=== PATIENT | male | born 1995 | race Two or more races ===

== ENCOUNTER 2025-08-26 15:48 | Emergency (ER) | payer MEDICAID, OTHER ==
[~2025-08-26] VITALS: Ht 185.4 cm; Wt 71.7 kg
[2025-08-26] MEDS: PROCHLORPERAZINE EDISYLATE 5 MG/ML 2ML VIAL IV ONE (16:15)
--- NOTE | 2025-08-26 16:38 | ED.PDOC ---
GI ASSESSMENT HPI Comments 29y M who presents to the ED for chief complaint of nausea and vomiting. Pt states he has been having nasuea, vomiting, chills, hot and cold sweats since earlier this AM. Pt has also been having diffuse abdominal pain, rating the pain 9/10, with associated exacerbating or relieving factors. Pt states he drinks ETOH and is daily marijuana smoker. Pt otherwise has noted rr 24 with otherwise stable vitals. Pt denies any sick contacts or changes to diet. Pt denies any other symptoms at this time. Chief Complaint: Nausea/Vomiting Time Seen by MD: 16:35 Reviewed Notes: Medications, Allergies Allergies: Coded Allergies: NO KNOWN ALLERGIES (Unverified , 08/26/25) Home Meds Active Scripts Pantoprazole Sodium Sesquihydr (Protonix) 40 Mg Tab, 40 MG PO DAILY, #30 TAB Prov:MARISSA KAUR MD 08/26/25 Ondansetron Odt 4MG Tab (ZOFRAN PO) 4 Mg Tb, 4 MG PO Q8HP PRN for 7 Days, #21 TAB ODT TAB-DISSOLVE IN MOUTH, THEN SWALLOW Prov:MARISSA KAUR MD 08/26/25 Information Source: Patient Mode of Arrival: Ambulatory Brought in by: self Timing: Hours Duration: Since onset Prehospital treatment: None Quality: Aching Vomitus: Food Particles Stool: Normal Severity: Moderate Recent: Other (marijuana) Recent Hx of: None Pain Location: Diffuse Modifying Factors: Nothing Associated sign and symptoms: Nausea, Vomiting, Abdominal Pain Past Medical History PAST MEDICAL HISTORY: Denies Surgical History: Denies all surgeries Family History Family History: Reviewed,noncontributory to illness Social History Smoker: Cigarettes Alcohol: Denies ETOH Use Drugs: Marijuana Constitutional: denies: chills, diaphoresis, fatigue, fever, malaise, sweats, weakness, others EENTM: denies: blurred vision, double vision, ear bleeding, ear discharge, ear drainage, ear pain, ear ringing, eye pain, eye redness, hearing loss, mouth pain, mouth swelling, nasal discharge, nose bleeding, nose congestion, nose pain, photophobia, tearing, throat pain, throat swelling, voice changes, others Respiratory: denies: cough, hemoptysis, orthopnea, SOB at rest, shortness of breath, SOB with excertion, stridor, wheezing, others Cardiovascular: denies: chest pain, dizzy spells, diaphoresis, Dyspnea on exertion, edema, irregular heart beat, left arm pain, lightheadedness, palpitations, PND, syncope, others Gastrointestinal: reports: nausea, vomiting; denies: abdomen distended, abdominal pain, blood streaked bowels, constipated, diarrhea, dysphagia, difficulty swallowing, hematemesis, melena, poor appetite, poor fluid intake, rectal bleeding, rectal pain, others Genitourinary: denies: burning, dysuria, flank pain, frequency, hematuria, incontinence, penile discharge, penile sore, pain, testicle pain, testicle swelling, urgency, others Neurological: denies: dizziness, fainting, headache, left sided numbness, left sided weakness, numbness, paresthesia, pre-existing deficit, right sided numbness, right sided weakness, seizure, speech problems, tingling, tremors, weakness, others Musculoskeletal: denies: back pain, gout, joint pain, joint swelling, muscle pain, muscle stiffness, neck pain, others Integumetry: denies: bruises, change in color, change in hair/nails, dryness, laceration, lesions, lumps, rash, wounds, others Allergic/Immunocompromised: denies: Difficulty Healing, Frequent Infections, Hives, Itching, others Hematologic/Lymphatic: denies: anemia, blood clots, easy bleeding, easy bruising, swollen glands, others Endocrine: denies: excessive hunger, excessive sweating, excessive thirst, excessive urination, flushing, intolerance to cold, intolerance to heat, unexplained weight gain, unexplained weight loss, others Psychiatric: denies: anxiety, bipolar disorder, depression, hopeless, panic disorder, schizophrenia, sleepless, suicidal, others All Other Systems: Reviewed and Negative Physical Exam General Appearance: Mild Distress HEENT: Normal ENT Inspection, Pharynx Normal, TMs Normal Neck: Full Range of Motion, Non-Tender, Normal, Normal Inspection Respiratory: Chest Non-Tender, Lungs Clear, No Accessory Muscle Use, No Respiratory Distress, Normal Breath Sounds Cardiovascular: No Edema, No JVD, No Murmur, No Gallop, Normal Peripheral Pulses, Regular Rate/Rhythm Breast Exam: Deferred Gastrointestinal: No Organomegaly, Non Tender, No Pulsatile Mass, Normal Bowel Sounds, Soft Genitalia: Deferred Pelvic: Deferred Rectal: Deferred Extremities: No calf tenderness, Normal capillary refill, Normal inspection, Normal range of motion, Non-tender, No pedal edema Musculoskeletal : Apperance: Normal Neurologic: Alert, instructor technical training II-XII nml as Tested, No Motor Deficits, Normal Affect, Normal Mood, No Sensory Deficits Cerebellar Function: Normal Reflexes: Normal Skin: Dry, Normal Color, Warm Lymphatic: No Adenopathy Was a procedure done? Was a procedure done?: No GI differential Dx Differential Diagnosis: Gastritis/PUD, Gastroenteritis, Pancreatitis, Dehydration, Electrolyte Imbalance, Food Poisoning, Bacterial, Viral Other Differential Diagnosis hyperemesis cannabinoid syndrome X-Ray, Labs, Meds, VS Vital Signs Date Time Temp Pulse Resp B/P (MAP) Pulse Ox O2 Delivery O2 Flow Rate FiO2 08/26/25 17:18 97.4 64 16 120/87 (98) 100 97.4 08/26/25 15:52 97.8 73 24 126/78 99 97.8 Lab Test 08/26/25 16:24 Range/Units White Blood Count 6.3 4.4-10.8 10^3/uL Red Blood Count 5.59 4.5-5.90 10^6/uL Hemoglobin 16.4 13.5-17.5 g/dL Hematocrit 47.4 41.0-53.0 % Mean Corpuscular Volume 84.8 80.0-100.0 fL Mean Corpuscular Hemoglobin 29.3 28.0-32.0 pg Mean Corpuscular Hemoglobin Concent 34.6 32.0-36.0 g/dL Red Cell Distribution Width 14.2 11.8-14.3 % Platelet Count 169 140-450 10^3/uL Mean Platelet Volume 12.0 H 6.9-10.8 fL Neutrophils (%) (Auto) 89.9 H 37.0-80.0 % Lymphocytes (%) (Auto) 7.8 L 10.0-50.0 % Monocytes (%) (Auto) 1.9 0.0-12.0 % Eosinophils (%) (Auto) 0.1 0.0-7.0 % Basophils (%) (Auto) 0.3 0.0-2.0 % Neutrophils # (Auto) 5.7 1.6-8.6 10 ^3/uL Lymphocytes # (Auto) 0.5 0.4-5.4 10 ^3/uL Monocytes # (Auto) 0.1 0-1.3 10 ^3/uL Eosinophils # (Auto) 0 0-0.8 10 ^3/uL Basophils # (Auto) 0 0-0.2 10 ^3/uL Nucleated Red Blood Cells 0.2 % Sodium Level 140 136-145 mmol/L Potassium Level 4.1 3.5-5.1 mmol/L Chloride Level 103 98-107 mmol/L Carbon Dioxide Level 25 20-31 mmol/L Anion Gap 12 5-15 Blood Urea Nitrogen 11 9-23 mg/dL Creatinine 0.91 0.700-1.30 mg/dL Glomerular Filtration Rate Calc 117 >90 mL/min BUN/Creatinine Ratio 12.1 10.0-20.0 Serum Glucose 116 H 74-106 mg/dL Calcium Level 10.7 H 8.7-10.4 mg/dL Lipase 42 12-53 U/L Current Medications Medications (Trade) Dose Ordered Sig/Silvia Route Start Time Stop Time Status Last Admin Sodium Chloride 1,000 ml @ 1,000 mls/hr Q1H ONCE IV 08/26/25 16:15 08/26/25 17:14 DC 08/26/25 18:57 The patient had an IV Hep-Lock established. The patient was given a 1 L bolus of normal saline The patient's CBC is within normal limits The chemistry panel is within normal limits The lipase is within normal limits. At this time, the patient is being discharged and will follow up with the primary care doctor The patient was given a prescription of Zofran and Protonix The patient will return to the emergency department's condition worsens. Time of 1ST Reevaluation: 17:10 Reevaluation 1ST: Unchanged Patient Education/Counseling: Diagnosis, Treatment, Prognosis, Need For Follow Up Family Education/Counseling: No Family Present SEPSIS Sepsis Screen Date sepsis recognized/suspect: Aug 26, 2025 Time Sepsis recognized/suspect: 1553 Recent Procedure: No On Antibiotic Therapy: No Respiratory Rate >20: Yes Heart Rate >90: No Temp<36 C (96.8 F) or >38.3 C: No SBP <90 or MAP <65 mmHG: No New Acute Mental Status Change: No Is the patient on CPAP, BIPAP,: No Physician Orders Urinalysis (08/26/25 16:14) Heplock Iv (08/26/25 16:14) Drug Screen (08/26/25 16:14) Vital Signs Date Time Temp Pulse Resp B/P (MAP) Pulse Ox O2 Delivery O2 Flow Rate FiO2 08/26/25 17:18 97.4 64 16 120/87 (98) 100 97.4 08/26/25 15:52 97.8 73 24 126/78 99 97.8 Laboratory Tests Test 08/26/25 16:24 White Blood Count 6.3 10^3/uL (4.4-10.8) Medications Medications Dose Ordered Sig/Silvia Route Start Time Stop Time Status Last Admin Dose Admin Sodium Chloride 1,000 ml @ 1,000 mls/hr Q1H ONCE IV 08/26/25 16:15 08/26/25 17:14 DC 08/26/25 18:57 Departure 1 Departure Time of Disposition: 19:16 Impression: Primary Impression: GERD (gastroesophageal reflux disease) Qualified Codes: K21.9 - Gastro-esophageal reflux disease without esophagitis Additional Impression: Vomiting Qualified Codes: R11.14 - Bilious vomiting Disposition: 01 HOME / SELF CARE / HOMELESS Condition: Fair e-Prescriptions Pantoprazole Sodium Sesquihydr (Protonix) 40 Mg Tab 40 MG PO DAILY, #30 TAB Prov: MARISSA KAUR MD 08/26/25 Ondansetron Odt 4MG Tab (ZOFRAN PO) 4 Mg Tb 4 MG PO Q8HP PRN for 7 Days, #21 TAB ODT TAB-DISSOLVE IN MOUTH, THEN SWALLOW Prov: MARISSA KAUR MD 08/26/25 Discharged With: Self Critical Care Note Critical Care Time?: No Stability Stability form required: No Heart Score Heart Score: Heart Score Response (Comments) Value History N/A 0 EKG N/A 0 Age N/A 0 Risk Factors N/A 0 Troponin N/A 0 Total 0 I personally scribed for MARISSA KAUR MD ([email or web address]) on 08/26/25 at 16:38. Electronically submitted by Pema Young ([email or web address]). MARISSA KAUR MD Aug 26, 2025 16:38
[2025-08-26 16:39] LABS: Hematocrit 47.4 % (41.0-53.0); Hemoglobin 16.4 g/dL (13.5-17.5); Mean Corpuscular Hemoglobin 29.3 pg (28.0-32.0); Mean Corpuscular Volume 84.8 fL (80.0-100.0); Nucleated Red Blood Cells % 0.2 %
[2025-08-26 16:46] LABS: Chloride 103 mmol/L (98-107); Potassium 4.1 mmol/L (3.5-5.1); Sodium 140 mmol/L (136-145)
[2025-08-26 16:47] LABS: Anion Gap 12 (5-15); Carbon Dioxide 25 mmol/L (20-31)
[2025-08-26 16:48] LABS: Calcium 10.7 mg/dL (8.7-10.4)
[2025-08-26 16:52] LABS: BUN/Creatinine Ratio 12.1 (10.0-20.0); Blood Urea Nitrogen 11 mg/dL (9-23)
[2025-08-26 16:53] LABS: Glucose 116 mg/dL (74-106); Lipase 42 U/L (12-53)
[2025-08-26 17:18] VITALS: TEMP 97.4
[2025-08-26] MEDS: SODIUM CHLORIDE 0.9% 1,000 ML IV ONE (18:57)
[2025-08-26] MEDS ORDERED: PANT40TA2 PO (19:14)
[2025-08-26] MEDS ORDERED: ZOFR4T PO (19:14)
[2025-08-26 20:51] VITALS: BP 140/79; PULSE 81; RESP 12; O2SAT 97
[2025-08-26] MEDS: PANTOPRAZOLE 40 MG/10 ML VIAL INJ IV ONE (20:52)
== END 2025-08-26 20:52 | disposition home or self-care (01) ==
LOC: ER 15:48
DX: K21.9 Gastro-esophageal reflux disease without esophagitis (principal); R11.2 Nausea with vomiting, unspecified; F17.210 Nicotine dependence, cigarettes, uncomplicated; Z79.899 Other long term (current) drug therapy
CPT/HCPCS: 36415; 80048; 83690; 85025; 96360; 99283; J7030

== ENCOUNTER 2025-10-05 11:46 | Emergency (ER) | payer MEDICAID ==
[~2025-10-05] VITALS: Ht 182.9 cm; Wt 67.7 kg
[~2025-10-05 11:46] MED LIST: PANT40TA2 PO; ZOFR4T PO
[2025-10-05 11:47] VITALS: BP 136/84; PULSE 66; RESP 18; TEMP 98; O2SAT 98
[2025-10-05] MEDS ORDERED: AUG875T PO (12:48)
[2025-10-05] MEDS ORDERED: ERY05OO OP (12:48)
--- NOTE | 2025-10-05 12:48 | ED.PDOC ---
Eye-HPI HPI Comments 30-year-old male presents to the ER with a prior MHx of hypertension in the chief complaint of left eye problem. Patient reports on having left eye pain associated with discharge, nasal congestion and a persistent acid reflux. Patient has been experiencing pain and significant discharge from his left eye since this morning. The patient is unsure if he was exposed to someone with a a similar condition. The patient also complains of nasal congestion that has been persistent for two days. Denies any other symptoms at this time. Chief Complaint: Eye Problem Time Seen by MD: 11:59 Reviewed Notes: Nurses Notes, Medications, Allergies Allergies: Coded Allergies: NO KNOWN ALLERGIES (Unverified , 08/26/25) Home Meds Active Scripts Amoxicillin & Pot Clavulanate (AUGMENTIN TABLET) 875 Mg Tb, 875 MG PO BID for 7 Days, #14 TAB 0 Refills Prov:JUAN GANDARA NP 10/05/25 Erythromycin (Erythromycin) 5 Mg/Gm Oin, 1 APPLIC OP TID for 7 Days, #3.5 OIN 0 Refills Prov:JUAN GANDARA NP 10/05/25 Pantoprazole Sodium Sesquihydr (Protonix) 40 Mg Tab, 40 MG PO DAILY, #30 TAB Prov:MARISSA KAUR MD 08/26/25 Ondansetron Odt 4MG Tab (ZOFRAN PO) 4 Mg Tb, 4 MG PO Q8HP PRN for 7 Days, #21 TAB ODT TAB-DISSOLVE IN MOUTH, THEN SWALLOW Prov:MARISSA KAUR MD 08/26/25 Information Source: Patient Mode of Arrival: Ambulatory Timing: Hours Duration: Since onset, Hours Prehospital treatment: None Quality: Pain, Discharge Eye Location: Left Lids: Discharge Conjunctiva: Discharge Cornea: Normal Pupils: Normal EOM: Normal Fundus: Normal Slit lamp exam: Normal Anterior chamber: Normal Mouth: Normal ENT Ear Exam: Normal Nose: Normal Sinuses: Normal Oropharynx: Normal Onset: Spontaneous Throat Exposed to: None History of: None Associated signs and symptoms: None Past Medical History PAST MEDICAL HISTORY: Denies Surgical History: Denies all surgeries Family History Family History: Reviewed,noncontributory to illness, Unknown Social History Smoker: Cigarettes Alcohol: Denies ETOH Use Drugs: Denies Drug Use Lives In: Home Constitutional: denies: chills, diaphoresis, fatigue, fever, malaise, sweats, weakness, others EENTM: reports: eye pain (/eye discharge), nasal discharge; denies: blurred vision, double vision, ear bleeding, ear discharge, ear drainage, ear pain, ear ringing, eye redness, hearing loss, mouth pain, mouth swelling, nose bleeding, nose congestion, nose pain, photophobia, tearing, throat pain, throat swelling, voice changes, others Respiratory: denies: cough, hemoptysis, orthopnea, SOB at rest, shortness of breath, SOB with excertion, stridor, wheezing, others Cardiovascular: denies: chest pain, dizzy spells, diaphoresis, Dyspnea on exertion, edema, irregular heart beat, left arm pain, lightheadedness, palpitations, PND, syncope, others Gastrointestinal: denies: abdomen distended, abdominal pain, blood streaked bowels, constipated, diarrhea, dysphagia, difficulty swallowing, hematemesis, melena, nausea, poor appetite, poor fluid intake, rectal bleeding, rectal pain, vomiting, others Genitourinary: denies: burning, dysuria, flank pain, frequency, hematuria, incontinence, penile discharge, penile sore, pain, testicle pain, testicle swelling, urgency, others Neurological: denies: dizziness, fainting, headache, left sided numbness, left sided weakness, numbness, paresthesia, pre-existing deficit, right sided numbness, right sided weakness, seizure, speech problems, tingling, tremors, weakness, others Musculoskeletal: denies: back pain, gout, joint pain, joint swelling, muscle pain, muscle stiffness, neck pain, others Integumetry: denies: bruises, change in color, change in hair/nails, dryness, laceration, lesions, lumps, rash, wounds, others Allergic/Immunocompromised: denies: Difficulty Healing, Frequent Infections, Hives, Itching, others Hematologic/Lymphatic: denies: anemia, blood clots, easy bleeding, easy bruising, swollen glands, others Endocrine: denies: excessive hunger, excessive sweating, excessive thirst, excessive urination, flushing, intolerance to cold, intolerance to heat, unexplained weight gain, unexplained weight loss, others Psychiatric: denies: anxiety, bipolar disorder, depression, hopeless, panic disorder, schizophrenia, sleepless, suicidal, others All Other Systems: Reviewed and Negative Physical Exam General Appearance: No Apparent Distress, Normal HEENT: Normal ENT Inspection, Pharynx Normal, TMs Normal Neck: Full Range of Motion, Non-Tender, Normal, Normal Inspection Respiratory: Chest Non-Tender, Lungs Clear, No Accessory Muscle Use, No Respiratory Distress, Normal Breath Sounds Cardiovascular: No Edema, No JVD, No Murmur, No Gallop, Normal Peripheral Pulses, Regular Rate/Rhythm Breast Exam: Deferred Gastrointestinal: No Organomegaly, Non Tender, No Pulsatile Mass, Normal Bowel Sounds, Soft Genitalia: Deferred Pelvic: Deferred Rectal: Deferred Extremities: No calf tenderness, Normal capillary refill, Normal inspection, Normal range of motion, Non-tender, No pedal edema Musculoskeletal : Apperance: Normal Neurologic: Alert, weigher production II-XII nml as Tested, No Motor Deficits, Normal Affect, Normal Mood, No Sensory Deficits Cerebellar Function: Normal Reflexes: Normal Skin: Dry, Normal Color, Warm Lymphatic: No Adenopathy Was a procedure done? Was a procedure done?: No EENT DIFF Eye: Conjunctivitis, Allergic, Bacterial X-Ray, Labs, Meds, VS Vital Signs Date Time Temp Pulse Resp B/P (MAP) Pulse Ox O2 Delivery O2 Flow Rate FiO2 10/05/25 11:47 98.0 66 18 136/84 98 98.0 X-Ray, Labs, Meds, VS Comment 30-year-old male presents to the ER with a prior MHx of hypertension in the chief complaint of left eye problem. Patient arrives alert and oriented, ABC's intact, afebrile, vital signs stable, saturating well in room air Presentation consistent with bacterial conjunctivitis. Patient is otherwise afebrile and well-appearing without clinical evidence of pre-septal cellulitis or orbital cellulitis. No recent history concerning for corneal abrasion or retained foreign body. No corneal opacity of keratitis, no ciliary flush on exam Prescription for topical antibiotics provided. Advised that patient still considered contagious for up to 24 hours after starting antibiotics Discussed: -Frequent hand washing -Over the counter analgesics -Hydration - Return to school/work after 24 hours of antibiotic use -Close follow up with a primary care provider or higher level of care if no improvement/worsening symptoms Additional MDM Review of External, Non-ED records: External records reviewed. Discussion with independent historian (EMS, family) history obtained from the patient/parents (if applicable) at bedside Chronic conditions affecting care: None Social determinants of health affecting care: None Consideration of admission (observation or admission): I considered escalation of care to admission for this patient, however given the reassuring workup, the patient is safe for outpatient management. Discussion with the Radiology: No Tests considered but not performed: Prescription medication considered but not given: 12 lead EKG interpretation: Time of 1ST Reevaluation: 12:29 Reevaluation 1ST: Improved Patient Education/Counseling: Diagnosis, Treatment, Prognosis Family Education/Counseling: No Family Present SEPSIS Sepsis Screen Date sepsis recognized/suspect: Oct 05, 2025 Time Sepsis recognized/suspect: 1147 Recent Procedure: No On Antibiotic Therapy: No Respiratory Rate >20: No Heart Rate >90: No Temp<36 C (96.8 F) or >38.3 C: No SBP <90 or MAP <65 mmHG: No New Acute Mental Status Change: No Is the patient on CPAP, BIPAP,: No Vital Signs Date Time Temp Pulse Resp B/P (MAP) Pulse Ox O2 Delivery O2 Flow Rate FiO2 10/05/25 11:47 98.0 66 18 136/84 98 98.0 Departure 1 Departure Time of Disposition: 12:46 Impression: Primary Impression: Conjunctivitis, bacterial Additional Impression: GERD (gastroesophageal reflux disease) Qualified Codes: K21.9 - Gastro-esophageal reflux disease without esophagitis Disposition: 01 HOME / SELF CARE / HOMELESS Condition: Stable e-Prescriptions Amoxicillin & Pot Clavulanate (AUGMENTIN TABLET) 875 Mg Tb 875 MG PO BID for 7 Days, #14 TAB 0 Refills Prov: JUAN GANDARA [employer]IST 10/05/25 Erythromycin (Erythromycin) 5 Mg/Gm Oin 1 APPLIC OP TID for 7 Days, #3.5 OIN 0 Refills Prov: JUAN GANDARA [employer]IST 10/05/25 Critical Care Note Critical Care Time?: No Stability Stability form required: No Heart Score Heart Score: Heart Score Response (Comments) Value History N/A 0 EKG N/A 0 Age N/A 0 Risk Factors N/A 0 Troponin N/A 0 Total 0 I personally scribed for JUAN GANDARA NP ([email or web address]) on 10/05/25 at 13:35. Electronically submitted by Wilfrido Gates ([email or web address]). JUAN GANDARA NP Oct 05, 2025 12:48
== END 2025-10-05 12:58 | disposition home or self-care (01) ==
LOC: ER 11:46
DX: H10.89 Other conjunctivitis (principal); H57.12 Ocular pain, left eye; K21.9 Gastro-esophageal reflux disease without esophagitis; I10 Essential (primary) hypertension; F17.210 Nicotine dependence, cigarettes, uncomplicated; Z79.899 Other long term (current) drug therapy